=== PATIENT | female | born 1985 | race Hispanic/Latino ===

== ENCOUNTER 2024-10-06 22:56 | Emergency (ER) | payer SELFPAY ==
[~2024-10-06] VITALS: Ht 162.6 cm; Wt 91.2 kg
--- NOTE | 2024-10-06 22:58 | NUR ---
UA CUP PROVIDED
--- NOTE | 2024-10-06 23:30 | ERN ---
General Chief Complaint: Lower Extremity Pain/Injury Stated Complaint: LEFT LEG PAIN Time Seen by MD: 22:58 Time Seen by Midlevel: 22:58 Source: patient History of Present Illness Initial Comments 39-year-old female with no significant past medical history presenting to the emergency department with right lower back pain that started today at 4:00 p.m.. She denies lifting anything heavy, denies any direct injury to the area, denies any fall. She states the pain started suddenly. Denies any focal weakness to her lower extremities. Patient states the pain starts in her right lower back and radiates down to her right leg. Denies any urinary/bowel incontinence. Denies any numbness or tingling to bilateral lower extremities. She states the pain is reproducible every time she moves. Denies any dysuria, hematuria, or any other symptoms at this time. Denies being . Allergies: Coded Allergies: tetracycline (Unverified Allergy, Unknown, 10/06/24) Past Medical History Past Medical History: Diabetes-Type II, Hypertension Past Surgical History: Cholecystectomy ROS Dictation CONSTITUTIONAL: Negative except for HPI HEAD/FACE: Negative except for HPI EENT: Negative except for HPI RESPIRATORY: Negative except for HPI GASTROINTESTINAL/ABDOMINAL: Negative except for HPI GENITOURINARY: Negative except for HPI MUSCULOSKELETAL: Negative except for HPI INTEGUMENTARY: Negative except for HPI NEUROLOGICAL/PSYCH: Negative except for HPI HEMATOLOGIC/LYMPHATIC: Negative except for HPI All Systems Negative, Except as noted above. 13 point review of systems assessed and all negative except for above. Physical Exam Physical Exam Dictation Vital Signs reviewed General Appearance: Alert, oriented x 3, no acute distress, well developed, nourished. Head and Face: non-traumatic. Eyes: PERRL, pink conjunctivas, eyelid no trauma, anterior chamber with arcus s enilis. Ears: Pinnas intact and no signs of trauma or erythema ear canals clear and no discharge TM no erythema Nose: No discharge, no bleeding. Oropharynx: Mouth normal, tongue pink, pharynx clear,no erythema, tonsils no exudates, no abscesses noted, mucous membrane moist Neck: Supple, non-tender, no thyromegaly, no masses, no JVD, no bruits Breast:Deferred Chest:No tenderness, no crepitus, no paradoxical movement, no retractions Lungs:Clear, well-ventilated, symmetric, no rales, no wheezing, no rhonchi, no stridor, good breath sounds bilaterally Heart: Regular rate, regular rhythm, no murmur, no gallops Vascular: no peripheral edema, Abdomen: Soft, positive bowel sounds, nondistended, no guarding, nontender, no rebound, no masses no hepatomegaly, no splenomegaly, no Duran's sign, no hernias. Rectal: Deferred Genital: Deferred Neurological: Normal speech, motor function intact, sensory function intact Musculoskeletal: Neck nontender, full range of motion, paraspinal muscle tenderness to the right lumbar region, no midline tenderness, full range of motion, Extremities: nontender, full range of motion Skin: Color pink, dry, no turgor, no rash, no lacerations, no abrasions, no contusions. Lymphatic: Deferred MDM MDM: 39-year-old female with no significant past medical history presenting to the emergency department with right lower back pain that started today at 4:00 p.m.. She denies lifting anything heavy, denies any direct injury to the area, denies any fall. She states the pain started suddenly. Denies any focal weakness to her lower extremities. Patient states the pain starts in her right lower back and radiates down to her right leg. Denies any urinary/bowel incontinence. Denies any numbness or tingling to bilateral lower extremities. She states the pain is reproducible every time she moves. Denies any dysuria, hematuria, or any other symptoms at this time. Denies being . On physical examination patient is ambulatory. She was right paraspinal muscle ten derness to the lumbar region. There was no midline tenderness. Patient is neurologically intact. Sensation is intact to bilateral lower extremities. There was no urinary/bowel incontinence. The patient denies any trauma. Have a low clinical suspicion for a fracture versus dislocation since no injury has been reported. Denies any dysuria/hematuria, or any other symptoms. Patient was given pain medication in the emergency department and will be discharged home with supportive management. Differential diagnosis: Sciatica, lumbar strain, There are no social concerns with this patient. Prescription drug management Prescriptions will include: Toradol Medical management and examination interpretation discussions were had by me with other qualified healthcare professionals as indicated for the patient's care. ED Course Orders Procedure Category Date Status Time Ketorolac PHA 1/25/25 Complete Tromethamine 30mg/Ml 23:30 Orphenadrine Citrate PHA 10/06/24 Complete (Norflex) 23:30 Triamcinolone Acet PHA 10/06/24 Complete 40mg/Ml 1ml (Kenalog 23:30 Current Medications Medications (Trade) Dose Ordered Sig/Richard Route PRN Reason Start Time Stop Time Status Last Admin Dose Admin Ketorolac Tromethamine (toRADol) 30 mg ONCE ONCE IM 10/06/24 23:30 10/06/24 23:31 DC Orphenadrine Citrate (Norflex) 60 mg ONCE ONCE IM 10/06/24 23:30 10/06/24 23:31 DC Triamcinolone Acetonide (Kenalog 40) 40 mg ONCE ONCE IM 10/06/24 23:30 10/06/24 23:31 DC Vital Signs Date Time Temp Pulse Resp B/P (MAP) Pulse Ox O2 Delivery O2 Flow Rate FiO2 10/06/24 22:58 97.9 87 20 160/90 100 Room Air DX & DISP Disposition: Discharge Departure Impression: Primary Impression: Low back strain Condition: Stable Scripts Ketorolac Tromethamine (Ketorolac Tromethamine) 10 Mg Tablet 1 TAB PO TID for pain for 5 Days, #15 TAB 0 Refills Prov: MADDIE ARCHIBALD 10/06/24 Referrals: SELF,REFERRAL (PCP) I have reviewed the case, and I agree with, Diagnosis and Plan I performed the substantive portion of the visit. I have reviewed and personally made and approve the management plan that is documented in the note by myself or the CARLYLE. I acknowledge for responsibility for the patient's management plan. MADDIE ARCHIBALD Oct 06, 2024 23:30
[2024-10-06] MEDS ORDERED: KETO10TA2 PO (23:47)
[2024-10-06] MEDS: ORPHENADRINE 60MG/2ML IM ONE (23:52)
[2024-10-06] MEDS: ketOROlac 30MG VIAL (30MG/ML) IM ONE (23:53)
[2024-10-06] MEDS: TRIAMCINOLONE ACETONIDE 40 MG/ML 1ML VIAL IM ONE (23:53)
[2024-10-07 00:06] VITALS: BP 136/86; PULSE 87; RESP 18; TEMP 98; O2SAT 98
== END 2024-10-07 00:14 | disposition home or self-care (01) ==
LOC: EDH 22:56
DX: S39.012A Strain of muscle, fascia and tendon of lower back, initial encounter (principal); E11.9 Type 2 diabetes mellitus without complications; I10 Essential (primary) hypertension; Z88.1 Allergy status to other antibiotic agents; Z90.49 Acquired absence of other specified parts of digestive tract; X58.XXXA Exposure to other specified factors, initial encounter; Y93.89 Activity, other specified; Y92.89 Other specified places as the place of occurrence of the external cause; Y99.8 Other external cause status
CPT/HCPCS: 99284; 96372 ×3; J1885; J3301; J2360